=== PATIENT | female | born 1955 | race Caucasian/White ===

== ENCOUNTER 2016-08-02 17:13 | Emergency (ER) | payer SELFPAY ==
[2016-08-02] MEDS ORDERED: ONDANSETRON ODT 4 MG TAB ONE (18:07)
[2016-08-02] MEDS ORDERED: DILAUDID 1 MG/ML AMP ONE (18:07)
[2016-08-02] MEDS ORDERED: LIDOCAINE 2% VISC 15 ML UDC ONE (18:08)
== END 2016-08-02 18:44 | disposition home or self-care (01) ==
LOC: ER 17:13
CPT/HCPCS: 96372